=== PATIENT | male | born 1955 | race Caucasian/White ===

== ENCOUNTER 2016-07-07 10:18 | Observation (INO) | payer BC ==
[2016-07-02 13:44] LABS: HEMATOCRIT 40.5 % (40.0-51.0); HEMOGLOBIN 14.3 g/dL (13.6-17.8)
--- NOTE | ~2016-07-07 | OP ---
Record Of Operation [facility] [address] [place]. [address] NAME: MAYUR SANCHEZ : 53 STATUS : ADM [facility] PAT#: [id number] AGE: 61 ADM/REG DATE : 07/07/16 MR#: [id number] REPORT SERV DATE: 07/08/16 DICTATED BY: MARGOT VILLEGAS II DATE: 07/08/16 REPORT STATUS : Draft TRANSCRIBED BY: MODL DATE: 07/08/16 DATE OF PROCEDURE: 07/07/2016 PREOPERATIVE DIAGNOSIS: Cervical spondylosis with significant discogenic neck pain and bilateral upper extremity radiculopathy. POSTOPERATIVE DIAGNOSIS: Cervical spondylosis with significant discogenic neck pain and bilateral upper extremity radiculopathy. PROCEDURES: 1. C4-5, C5-6, and C6-7 anterior interbody arthrodesis. 2. Application of prosthetic device, C4-5, C5-6, C6-7. 3. Instrumentation, C4-C7 (four segments). 4. Use of allograft substitute and bone marrow aspirate. 5. Use of the microscope. SURGEON: Margot Villegas M.D. FLUIDS: 1600 mL LR. ESTIMATED BLOOD LOSS: 25 mL. DRAINS: One drain. COMPLICATIONS: None. ANTIBIOTIC: Preoperatively. IMPLANT: Alphatec. PREOPERATIVE HISTORY: This is a very friendly gentleman who reports significant pain in the neck, worse with extension and rotation. He reports radiating pain into the bilateral periscapular region. He reported some radiating pain also below the elbows occasionally. He has still been able to work because of what appears to be a high work ethic. The pain is much worse also at night, trying to sleep. We discussed the pros and cons of surgery. We discussed the rates of success versus failure regarding neck pain and arm pain respectively. He wished to proceed. DESCRIPTION OF PROCEDURE: After informed consent was obtained, the patient was brought to the operating room at his request and general anesthesia was achieved. He was placed in the supine position and the neck and iliac crest prepped and draped in a sterile fashion. 5 mL of bone marrow was aspirated from the iliac crest followed by a right-sided longitudinal incision. The interval was explored and the retropharyngeal approach completed. The [place] pins were placed following the placement of the conveyor belt operator retractors. Next, the C4-5 disk was now incised and removed with the pituitary Caroline escoto Record Of Operation [facility] [address] [place]. [address] NAME: MAYUR SANCHEZ : 53 STATUS : ADM Fatoumata PAT#: [id number] AGE: 61 ADM/REG DATE : 07/07/16 MR#: [id number] REPORT SERV DATE: 07/08/16 DICTATED BY: MARGOT VILLEGAS II DATE: 07/08/16 REPORT STATUS : Draft TRANSCRIBED BY: MODL DATE: 07/08/16 rongeurs, and the curettes. The high-speed bur was made now to create parallel endplates. The posterior vertebral body osteophytes which were significant in size and their compression were now removed to decompress the exiting nerve roots. The posterior longitudinal ligament was not removed and the prosthetic device well placed at C4-5. This contained allograft substitute and bone marrow aspirate. Next, the C5-6 level was completed in a similar manner with diskectomy and endplate preparation. Again, the posterior vertebral body osteophytes were removed. The posterior longitudinal ligament was also removed and the anterior canal and foramen well decompressed. The prosthetic device was well placed at C5-6. Lastly, the C6-7 level was addressed in a similar manner with diskectomy and endplate preparation. The prosthetic device was also placed following removal of the posterior vertebral body osteophytes. Next, the [place] pins were removed and the anterior fixation device placed. Two screws were placed in the C4, C5, C6, and C7. The multiplanar imaging confirmed acceptable placement of the implants. The deep drain was placed followed by standard closure, and the patient was then extubated and transferred to PACU in stable condition. JAVAN/BRITT Margot Villegas II, M.D. / [id number] CC: Inez Solis II, MATTHEW J.
[~2016-07-07 10:18] MED LIST: 8 HOUR650 MG PO; IBU800 PO
[2016-07-07 11:30] LABS: ALBUMIN 4.1 G/DL (3.5-5.0); ALKALINE PHOSPHATASE 87 U/L (45-117); BUN (BLOOD UREA NITROGEN) 14 MG/DL (6-23); CALCIUM, SERUM 8.7 MG/DL (8.5-10.4); CHLORIDE, SERUM 110 MMOL/L (96-112); CO2 (CARBON DIOXIDE) 27 MMOL/L (24-34); CREATININE 1.21 MG/DL (0.70-1.30); DIRECT BILIRUBIN 0.1 MG/DL (0.0-0.4); GFR AFRICAN AMERICAN 74 ML/MIN (>=60); GFR NON AFRICAN AMERICAN 64 ML/MIN (>=60); GLUCOSE, SERUM 93 MG/DL (60-99); INDIRECT BILIRUBIN(NOT ORDER) 0.5 MG/DL (0.1-0.9); POTASSIUM, SERUM 4.2 MMOL/L (3.5-5.3); SGPT(ALT) 22 U/L (5-65); SODIUM, SERUM 143 MMOL/L (135-148); TOTAL BILIRUBIN 0.6 MG/DL (0-1.2)
[2016-07-07 11:31] LABS: SGOT(AST) 24 U/L (5-40)
[2016-07-08] MEDS ORDERED: PCET PO (13:40)
[2016-07-08] MEDS ORDERED: V5 PO (13:40)
== END 2016-07-08 20:14 | disposition home or self-care (01) ==
LOC: SDC 10:18 → 3SO 17:49
PROVIDERS: Orthopaedic Surgery
PROC: 0RG20K0 Fusion of 2 or more Cervical Vertebral Joints with Nonautologous Tissue Substitute, Anterior Approach, Anterior Column, Open Approach (ICD-10-PCS; 2016-07-07)
PROC: 0RG10J0 Fusion of Cervical Vertebral Joint with Synthetic Substitute, Anterior Approach, Anterior Column, Open Approach (ICD-10-PCS; 2016-07-07)
PROC: 0RB30ZZ Excision of Cervical Vertebral Disc, Open Approach (ICD-10-PCS; 2016-07-07)
PROC: 079T3ZX Drainage of Bone Marrow, Percutaneous Approach, Diagnostic (ICD-10-PCS; 2016-07-07)
PROC: 0RG20A0 Fusion of 2 or more Cervical Vertebral Joints with Interbody Fusion Device, Anterior Approach, Anterior Column, Open Approach (ICD-10-PCS; principal; 2016-07-07 12:15)
DX: M50.121 Cervical disc disorder at C4-C5 level with radiculopathy (principal); M50.122 Cervical disc disorder at C5-C6 level with radiculopathy; M50.123 Cervical disc disorder at C6-C7 level with radiculopathy; M47.812 Spondylosis without myelopathy or radiculopathy, cervical region; M48.02 Spinal stenosis, cervical region; F17.210 Nicotine dependence, cigarettes, uncomplicated; M19.90 Unspecified osteoarthritis, unspecified site; Z90.49 Acquired absence of other specified parts of digestive tract; Z83.3 Family history of diabetes mellitus; Z83.6 Family history of other diseases of the respiratory system; Z79.1 Long term (current) use of non-steroidal anti-inflammatories (NSAID); Z79.899 Other long term (current) drug therapy; Z98.890 Other specified postprocedural states
CPT/HCPCS: 80048; 80076; 85014; 85018; 87641; 88304; 88311; 93005; 96374; 96375; 96376; A9270-GY; C1713; G0378; J0690; J2250; J2270; J2405; J2710; J3010

== ENCOUNTER 2016-07-11 12:40 | Inpatient (IN) | payer BC ==
--- NOTE | ~2016-07-11 | HP ---
History And Physical [place] [id number] [facility] [place]. [address] NAME: MAYUR SANCHEZ : 53 STATUS : ADM IN [facility]#: [id number] AGE: 61 ADM/REG DATE : 07/11/16 MR#: [id number] REPORT SERV DATE: 07/11/16 DICTATED BY: MARGOT AGUDELO II DATE: 07/11/16 REPORT STATUS : Draft TRANSCRIBED BY: BRITT DATE: 07/11/16 DATE OF ADMISSION: 07/11/2016 CHIEF COMPLAINT: Difficulty swallowing. HISTORY OF PRESENT ILLNESS: A very friendly gentleman who is status post ACDF on 07/08/2016. He has been having increasing swelling. He denies any shortness of breath but does have some dyspnea when he lays completely flat. He denies any fevers or chills. PAST MEDICAL HISTORY: As above, history of COPD and smoking. REVIEW OF SYSTEMS: Please see ER Triage sheet dated 07/11/2016. I reviewed it and agree with it. PHYSICAL EXAMINATION: GENERAL: Reveals a gentleman in no acute distress. He is awake, alert, and oriented. NECK: His neck is supple, but he does have an obvious incision on the right side. There was some moderate edema throughout his neck. He has minimal tracheal deviation upon my exam. I spoke with the ER doctor earlier who thought he had some. There is no stridor on inspiration or expiration. CARDIOVASCULAR: Regular rate and rhythm when I palpate the radial pulse. His respiratory rate is approximately 14. ABDOMEN: Soft. NEUROLOGICAL: He is intact. IMPRESSION/PLAN: Retropharyngeal hematoma with fortunately no evidence of respiratory distress, but there is difficulty swallowing, which appears to be more than the typical postop amount of difficulty swallowing. Our plan is for an emergency evacuation of the hematoma, secondary to concerns it could develop into a respiratory issue. His is at the bedside here in preoperative holding. I also called him while he was in the emergency room when I was headed in. I simply want to hopefully put his mind at ease that we are going to take care of him this afternoon. JAVAN/BRTIT Margot Agudelo II, M.D. / [id number] CC: Inez Solis II, MATTHEW J.
--- NOTE | ~2016-07-11 | OP ---
Record Of Operation [facility] [address] [place]. [address] NAME: MAYUR SANCHEZ : 53 STATUS : ADM IN [facility]#: [id number] AGE: 61 ADM/REG DATE : 07/11/16 MR#: [id number] REPORT SERV DATE: 07/11/16 DICTATED BY: BOBBY VILLEGAS II DATE: 07/11/16 REPORT STATUS : Draft TRANSCRIBED BY: BRITT DATE: 07/11/16 DATE OF PROCEDURE: 07/11/2016 PREOPERATIVE DIAGNOSES: 1. Cervical retropharyngeal edema with suspected hematoma. 2. Dysphagia. POSTOPERATIVE DIAGNOSIS: Acute cervical seroma with dysphagia. PROCEDURE: Evacuation of anterior cervical seroma. OPERATIONS MGR: Jorge Easley. FLUIDS: 400 mL lactated Ringer's. ESTIMATED BLOOD LOSS: Less than 5 mL. DRAINS: One. COMPLICATIONS: None. ANTIBIOTIC: Preoperatively. FINDINGS: Moderate-sized retropharyngeal seroma without hematoma component. DETAILS OF PROCEDURE: A very friendly 61-year-old gentleman, who underwent a 3-level ACDF earlier this week. He was kept overnight and was doing well on postop day 1. The surgery itself was uncomplicated. His drain was discontinued on postop day 1 and he then developed fairly significant dysphagia on 07/10. He observed it, but this morning he felt that it was significant enough that he called our office according to him and his . Ultimately, emergency medical services were notified and they were concerned enough that they called [facility]. The patient was in the emergency room at [facility] and I spoke with the attending and overall felt more at ease that there was no obvious respiratory distress. The patient had a respiratory rate of 14. He had minimal tracheal deviation according to the ER physician. However, based upon what sounded like significant swelling, I felt that he likely did have a hematoma and/or seroma. At that point, I told the ER staff that we would take him to the operating room on an emergent basis this afternoon. I called the operating room and also spoke with Dr. Golden. Dr. Cross ultimately performed the anesthesia. I also called the patient while he was in the emergency room bay. He sounded comfortable and without respiratory distress but obviously was concerned. His surgery was posted and I came to the preoperative holding area to meet them at approximately 1:20 p.m. We rolled a little after 1:30. After informed consent was obtained, the patient was brought to the operating room at his request and general anesthesia achieved. He was placed in supine position. Dr. Cross performed the intubation. I fortunately did not see any significant edema to the airway. Record Of Operation [facility] [address] [place]. [address] NAME: MAYUR SANCHEZ : 53 STATUS : ADM IN PAT#: [id number] AGE: 61 ADM/REG DATE : 07/11/16 MR#: [id number] REPORT SERV DATE: 07/11/16 DICTATED BY: BOBBY VILLEGAS II DATE: 07/11/16 REPORT STATUS : Draft TRANSCRIBED BY: BRITT DATE: 07/11/16 The neck was then prepped and draped in a sterile fashion. Next, I then reopened the incision. The superficial suture was removed. Next, the platysma layer was incised. At this point, we did encounter a significant amount of seroma. There was somewhat surprisingly very little hematoma. There was however a large amount of serosanguineous fluid that was now evacuated. We then irrigated the area. There was no evidence of infection or suspicious material. The retropharyngeal space was then explored meticulously. There was no active bleeding noted. The longus colli muscles were also closely examined and again no obvious bleeding noted. We observed the deep and superficial tissues and ultimately did not identify any active bleeding. Next, the deep drain was placed for collection of any future seroma here in the next one-two days. At this point, the incision was closed in a standard manner. At this point, the patient was pending extubation and transfer. Dr. Cross and I felt that based upon his airway inspection upon induction that he should be safe to go to the floor, but we will closely monitor him obviously in the recovery room. JAVAN/BRITT Bobby Villegas II, M.D. / [id number] CC: Inez Solis II, Mathew J.
[2016-07-11 12:05] LABS: BASOPHILS 0.1 %; BASOPHILS ABSOLUTE 0.02 10/3/uL (0.0-0.16); EOSINOPHILS 0.2 %; EOSINOPHILS ABSOLUTE 0.03 10/3/uL (0.0-0.53); HEMOGLOBIN 16.1 g/dL (13.6-17.8); IMMATURE GRANULOCYTES 0.3 %; IMMATURE GRANULOCYTES ABSOLUTE 0.05 10/3/uL (0.0-0.11); LYMPHOCYTES 8.7 %; LYMPHOCYTES ABSOLUTE 1.36 10/3/uL (0.67-4.30); MEAN CORPUS HGB CONC 35.1 g/dL (32.0-36.0); MEAN CORPUSCULAR HEMOGLOB 34.5 pg (26.0-34.0); MEAN CORPUSCULAR VOLUME 98.5 fL (80-100); MONOCYTES 10.5 %; MONOCYTES ABSOLUTE 1.63 10/3/uL (0.21-1.20); NEUTROPHILS 80.2 %; PLATELET COUNT 136 10/3/uL (150-400); RBC DISTRIBUTION WIDTH 13.5 % (12.0-16.0); RED CELL COUNT 4.66 10/6/uL (4.7-6.1); WHITE BLOOD CELLS 15.6 10/3/uL (4.5-10.5)
[2016-07-11 12:06] LABS: HEMATOCRIT 45.9 % (40.0-51.0); MANUAL DIFF NO %
[2016-07-11 12:12] LABS: INTERNATIONAL NORMAL RATI 1.3 UNITS (-); PROTIME (NOT ORD) 16.3 SEC (12.0-14.5)
[2016-07-11 12:13] LABS: PARTIAL THROMBO TIME 34.3 SEC (22.5-37.2)
[2016-07-11 12:23] LABS: BUN (BLOOD UREA NITROGEN) 19 MG/DL (6-23); CHEST PAIN PROFILE TAT 0 Hrs 24 Mins; CHLORIDE, SERUM 99 MMOL/L (96-112); CO2 (CARBON DIOXIDE) 29 MMOL/L (24-34); CREATININE 1.14 MG/DL (0.70-1.30); GFR AFRICAN AMERICAN 79 ML/MIN (>=60); GFR NON AFRICAN AMERICAN 69 ML/MIN (>=60); GLUCOSE, SERUM 113 MG/DL (60-99); POTASSIUM, SERUM 4.3 MMOL/L (3.5-5.3); SODIUM, SERUM 137 MMOL/L (135-148); TROPONIN I <0.02 NG/ML (<0.05)
[~2016-07-11 12:40] MED LIST changes: +PCET PO; +V5 PO
== END 2016-07-13 18:14 | disposition home or self-care (01) | DRG 909 ==
LOC: ER 12:40 → 3SO 12:55
PROVIDERS: Emergency Medicine; Orthopaedic Surgery
PROC: 0J950ZZ Drainage of Left Neck Subcutaneous Tissue and Fascia, Open Approach (ICD-10-PCS; principal; 2016-07-11 13:30)
DX: M96.842 Postprocedural seroma of a musculoskeletal structure following a musculoskeletal system procedure (principal); F17.210 Nicotine dependence, cigarettes, uncomplicated
CPT/HCPCS: 71010; 80048; 83605; 83735; 84484; 85025; 85610; 85730; 87040; 93005; 96374; 99285; A9270-GY; J0330; J0690; J2250; J2405; J3010